=== PATIENT | female | born 1995 | race Caucasian/White ===

== ENCOUNTER 2018-06-28 09:05 | Day surgery (SDC) | payer OTHER ==
[2018-06-28] MEDS ORDERED: CEFAZOLIN 2 GM/50 ML (PMX) 50 ML IVPB (14:00)
[2018-06-28] MEDS ORDERED: SOD CHLORIDE 0.9% 1,000 ML IV (14:00)
[2018-06-28] MEDS ORDERED: LIDOCAINE 2% (SDV) 5 ML INJ (17:37)
[2018-06-28] MEDS ORDERED: MIDAZOLAM 1 MG/ML 2 ML INJ (17:37)
[2018-06-28] MEDS ORDERED: FENTAnyl 50 MCG/ML VIAL (17:37)
[2018-06-28] MEDS ORDERED: PROPOFOL 20 ML (17:37)
[2018-06-28] MEDS ORDERED: CEFAZOLIN 1 GM INJ (17:49)
[2018-06-28] MEDS ORDERED: DEXAMETHASONE 4 MG/ML 1 ML INJ (17:49)
[2018-06-28] MEDS ORDERED: ONDANSETRON 4 MG INJ (17:49)
[2018-06-28] MEDS ORDERED: FENTAnyl 50 MCG/ML VIAL IV ×3 (18:00)
[2018-06-28] MEDS ORDERED: DIPHENHYDRAMINE 50 MG INJ IV (18:00)
[2018-06-28] MEDS ORDERED: ONDANSETRON 4 MG INJ IV (18:00)
[2018-06-28] MEDS ORDERED: MEPERIDINE 25 MG INJ IV (18:00)
[2018-06-28] MEDS ORDERED: PROCHLORPERAZINE 10 MG INJ IV (18:00)
[2018-06-28] MEDS ORDERED: OXYCODONE/ACETAMINOPHEN (5/325) TAB PO (18:00)
[2018-06-28] MEDS ORDERED: HYDROmorphONE 1 MG/5 ML IV SYRINGE IV ×3 (18:00)
[2018-06-28] MEDS: BUPIVACAINE 0.25% (MPF) 30 ML INJ (18:06)
[2018-06-28] MEDS ORDERED: HYDROCODONE/APAP (5/325) TAB PO (18:30)
== END 2018-06-28 20:09 | disposition home or self-care (01) ==
LOC: SDS 09:05
DX: D24.1 Benign neoplasm of right breast (principal); N60.11 Diffuse cystic mastopathy of right breast
CPT/HCPCS: 19301; 88307